=== PATIENT | female | born 1950 | race Caucasian/White ===

== ENCOUNTER 2017-06-01 08:22 | Observation (INO) ==
[2017-06-01] MEDS ORDERED: NITROGLYCERIN 2% OINT 1 INCH/GM PACK TOP STA (09:08)
[2017-06-01] MEDS ORDERED: ASPIRIN 325 MG TABLET PO STA (09:08)
--- NOTE | 2017-06-01 09:12 | EKG Report ---
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
--- NOTE | 2017-06-01 09:14 | Emergency Department Note ---
Arrival - Arrival Chief Complaint: Arrhythmia/Palpitations ED Nursing Triage Note: pt was getting out of shower this am and started ahving aching in bilateral jaws. then when pt was trying to get in the car she started having chest tightness. acu check is 148 Mode of Arrival: Stretcher Limitations: No Limitations Source: Patient Time Seen by Provider: 06/01/17 09:08 - History of Present Illness HPI Narrative: This 67-year-old white female presents with a history of waking up this morning and after taking a shower had severe left jaw pain with mild shortness of breath that lasted a matter of minutes. However, this was soon followed by getting into her car and having onset of chest tightness with shortness of breath and diaphoresis without nausea or vomiting. This lasted approximately 20 minutes until EMS arrived on the scene and began oxygen. This discomfort has since resolved. Of note, she states yesterday at [employer] she had a similar episode with the chest heaviness, diaphoresis, and low-grade nausea which by merely sitting there resolved itself over a period of 20-30 minutes. She is followed by Dr. Walker for atrial fibrillation and has not had a history of significant ischemic disease or congestive failure. Up until Thursday, she had been feeling quite well in fact, and had recently seen Dr. Walker and given a clean bill of health cardiac donovan. Currently she may have a twinge of nausea left but otherwise feels back to normal. Onset (ago): hour(s) (Patient presents 3 hours post onset of symptoms) Allergies/Adverse Reactions: Allergies Allergy/AdvReac Type Severity Reaction Status Date / Time No Known Allergies Allergy Unverified 06/01/17 08:35 Home Medications: Home Medications Medication Instructions Recorded Confirmed Type Apixaban [Eliquis] 5 mg PO BID 06/01/17 06/01/17 History Atenolol 25 mg PO BID 06/01/17 06/01/17 History Flecainide Acetate 100 mg PO BID 06/01/17 06/01/17 History Lisinopril 10 mg PO DAILY 06/01/17 06/01/17 History Magnesium Oxide 400 mg PO BID 06/01/17 06/01/17 History Metformin HCl 500 mg PO BID 06/01/17 06/01/17 History PARoxetine HCl [Paroxetine HCl] 20 mg PO DAILY 06/01/17 06/01/17 History Simvastatin 10 mg PO DAILY 06/01/17 06/01/17 History Review of System - Review of System 12 point system: reviewed and no additional remarkable complaints except as stated - Review of System Constitutional: Present: as per HPI Respiratory: Present: as per HPI Cardiovascular: Present: as per HPI Gastrointestinal: Present: as per HPI Medical,Surgical,& Family Hx - Medical History Cardio: History of: Cardiac Dysrhythmia (a fib), Hypertension Endocrine: History of: Diabetes Mellitus (NIDDM) - Social History Smoking Status: Never smoker Frequency of Alcohol Use: None Type of Drug Use: None Exam Physical Examination: GENERAL: Morbidly obese white female in no acute distress. HEENT: Normocephalic. No trauma. Moist mucous membranes. EOMI. PERRLA. ENT NML NECK: Supple. No adenopathy. CARDIAC: Regular. No murmurs. Heart rate 100 CHEST: Clear to auscultation. No respiratory distress. ABDOMEN: Soft. Nontender. Active bowel sounds. EXTREMITIES: No trauma. Normal ROM. No pedal edema. SKIN: No diaphoresis. No rash. NEURO: Alert. Neuro intact. No focal deficits. Vital Signs: Vital Signs Temperature 98.1 F 06/01/17 08:28 Pulse Rate 96 H 06/01/17 10:00 Respiratory Rate 19 06/01/17 10:00 Blood Pressure 111/86 06/01/17 10:00 O2 Sat by Pulse Oximetry 99 06/01/17 10:00 Course - Reevaluation(s) Reevaluation #1: Advised patient of need for admission further evaluation given her numerous episodes in the last 24 hours of the symptoms. - Consultations Consultation #1: Discussed with cardiology who will admit for further evaluation and treatment Results - Labs CBC & BMP: 06/01/17 09:18 06/01/17 09:18 Labs: I reviewed the laboratory noted the normal cardiac's - Impressions EKG: Sinus rhythm at 100 with shortened [place] interval and normal QRS duration. Left axis deviation with diffuse ST flattening and depression in inferolateral leads. No acute injury pattern noted. - Diagnostic Findings Procedure: Chest x-ray: image reviewed by me, report reviewed by me (Normal chest) Disposition Clinical Impression: Unstable angina, Atrial fibrillation Case discussed with: patient Disposition: Still a Patient Condition: Guarded Time of Disposition: 11:34
[2017-06-01] MEDS ORDERED: METOPROLOL TARTRATE 25 MG TABLET PO STA (09:18)
[2017-06-01 09:30] LABS: Basophils % 0.3 % (0.0-0.8); Eosinophils # 0.2 10*3/uL (0.0-0.87); Eosinophils % 1.6 % (0.00-10.9); Hematocrit 44.8 VOL% (35.7-47.0); Immature Granulocytes % 0.4 %; Immature Granulocytes Absolute 0.05 #; Lymphocytes # 3.2 10*3/uL (1.4-4.0); Lymphocytes % 27.7 % (21.3-54.2); Mean Corpuscular HGB Conc 33.5 GM/DL (32-36); Mean Corpuscular Hemoglobin 29 PG (27-34); Mean Corpuscular Volume 85.7 FL (87-102); Mean Platelet Volume 10.6 FL (9.6-12.0); Monocytes # 0.6 10*3/uL (0.11-0.8); Monocytes % 5.2 % (1.7-12.7); Neutrophils # 7.4 10*3/uL (1.4-7.4); Neutrophils % 64.8 % (38.7-73.9); Platelet Count 262 T/CUMM (130-400); Red Blood Count 5.23 MC/CUMM (3.8-5.5); Red Cell Distribution Width 15.6 % (9.3-17.3); White Blood Count 11.5 T/CUMM (4-12)
[2017-06-01] MEDS ORDERED: METOPROLOL TARTRATE 25 MG TABLET ONE (09:41)
[2017-06-01] MEDS ORDERED: NITROGLYCERIN 2% OINT 1 INCH/GM PACK TOP ONE (09:41)
[2017-06-01] MEDS ORDERED: ASPIRIN 325 MG TABLET ONE (09:42)
--- NOTE | 2017-06-01 09:55 | XRay Report ---
Exam: XR chest 2V Indication: Midline chest pain, cardiomegaly Comparison study: Prior chest radiograph 01/18/2009 Findings: Critics silhouette is mildly enlarged, similar to prior. Otherwise, the heart, mediastinum and bony structures are stable from prior. Minimal perihilar/basilar interstitial prominence appears similar prior may represent underlying scarring. There is no focal consolidation, pneumothorax or pleural effusion identified. Impression: No acute cardiopulmonary process. No significant change from prior. PROCEDURE INTERPRETED AT [facility] DEPARTMENT OF RADIOLOGY Final Report Signed by: Mikey Jc
[2017-06-01 09:59] LABS: Alanine Aminotransferase 24 U/L (13-56); Albumin 3.6 G/DL (3.4-5.0); Alkaline Phosphatase 79 U/L (45-117); Aspartate Amino Transferase 33 U/L (0-37); Blood Urea Nitrogen 19 MG/DL (7-18); Calcium 9.6 MG/DL (8.5-10.1); Glucose 123 MG/DL (74-106); Osmolality,Calculated 281.4 MOS/KG (273-304); Sodium 140 MMOL/L (136-145); Total Protein 6.9 G/DL (6.4-8.3); Troponin I Only < 0.015 NG/ML (0.00-0.045)
[2017-06-01 10:53] LABS: Apearance,Urine CLOUDY (Clear); Bilirubin,Urine Negative (Negative); Blood, Urine Negative (Negative); Glucose,Urine (UA) Negative (Negative); Ketones,Urine Negative (Negative); Mucus,Urine Occasional /LPF (Occasional); Nitrite,Urine Negative (Negative); Protein,Urine 30 MG/DL; RBC,Urine 8 /HPF (0-4); Squamous Epithelial Cell,Urine Occasional /HPF (0-10); Urine Color Yellow (Yellow); Urine Specific Gravity 1.012 (1.001-1.035); WBC,Urine 295 /HPF (0-6)
[2017-06-01 11:00] LABS: Barbiturates Screen,Urine Negative (Negative); Benzodiazepines Screen,Urine Negative (Negative); Cannabinoid Screen,Urine Negative (Negative); Opiate Screen,Urine Negative (Negative); Phencyclidine Screen,Urine Negative (Negative)
[2017-06-01] MEDS ORDERED: DOCUSATE SODIUM 100 MG CAPSULE PO PRN (11:34)
[2017-06-01] MEDS ORDERED: ACETAMINOPHEN 325 MG TABLET PO PRN (11:34)
[2017-06-01] MEDS ORDERED: ZALEPLON 5 MG CAPSULE PO PRN (11:34)
[2017-06-01] MEDS ORDERED: MAGNESIUM SULF RIDER 2 GM in PREMIX 1 EACH IV PRN (11:34)
[2017-06-01] MEDS ORDERED: MAGNESIUM SULF RIDER 4 GM in PREMIX 1 EACH IV PRN (11:34)
[2017-06-01] MEDS ORDERED: ONDANSETRON 4 MG/2 ML VIAL IV PRN (11:34)
[2017-06-01] MEDS ORDERED: POTASSIUM CHLORIDE 20 MEQ TABLET PO PRN (11:34)
[2017-06-01] MEDS ORDERED: ENOXAPARIN 120 MG/0.8 ML SYRINGE SUBCUT ONE ×2 (11:36→12:17)
[2017-06-01] MEDS ORDERED: GLUCAGON 1 MG VIAL IM PRN (11:59)
[2017-06-01] MEDS ORDERED: DEXTROSE 50% 25 GM/50 ML VIAL IV PRN (11:59)
--- NOTE | 2017-06-01 12:00 | Cardiology History & Physical ---
<Anastasia Douglas E - Last Filed: 06/01/17 11:41> Assessment and Plan - Time spent with patient Time spent with patient: Greater than 30 minutes (due to assessment, plan, and documentation) (1) Chest pain Status: Acute Assessment and plan: See plan of care listed below. Current Visit: Yes (2) Paroxysmal atrial fibrillation Status: Chronic Assessment and plan: See plan of care listed below. Current Visit: Yes (3) Hypertension Status: Chronic Assessment and plan: See plan of care listed below. Current Visit: Yes (4) Hyperlipidemia Status: Chronic Assessment and plan: See plan of care listed below. Current Visit: Yes (5) Non-insulin dependent type 2 diabetes mellitus Status: Chronic Assessment and plan: See plan of care listed below. Current Visit: Yes (6) Obesity Status: Chronic Assessment and plan: See plan of care listed below. 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 Walker PCP: Dr. Pérez Ms. Vaca is a 67 year old female with a history of paroxysmal atrial fibrillation, hypertension, type 2 diabetes, hyperlipidemia, obesity. Risk factors are significant for: Diabetes, hypertension, obesity, age, sedentary lifestyle. She has required cardioversion twice in the past, on August 12, 2004 and on April 13, 2009. She reports she has undergone stress testing in the past but this is been several years ago. I cannot find this report in her clinic or hospital record. She presented to the emergency room via EMS this morning for further evaluation of chest heaviness. Ms. Vaca tells me that yesterday when she got out of the shower she began having bilateral jaw aching, nausea, and diaphoresis. She tells me this lasted for approximately an hour and improved after she got to Thursday school and was able to rest in a cold room. She reports she had no other issues throughout the day. This morning, she was getting ready to go to work when she developed the same symptoms with the addition of chest heaviness and shortness of breath. When the symptoms did not pass, she called EMS. Her symptoms today lasted approximately 20 minutes and went away and went to the hospital. She can identify no aggravating or alleviating factors other than being in a cold room helping her feel better. Her symptoms were mild to moderate in severity. Her symptoms are nonreproducible to movement, palpation, or deep breathing. 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 Upon arrival, she was found to be in an ectopic atrial tachycardic rhythm and noted ST depression. Her initial set of cardiac biomarkers was negative. Creatinine is 0.8, potassium 5.0, BNP 97, H&H stable at 15.0/44.8. ASSESSMENT/PLAN: 1. CHEST PAIN - Patient presents with some typical and some atypical features of angina. Will admit to the telemetry unit to rule out WI. Will continue to cycle cardiac biomarkers and EKGs. 2. PAROXYSMAL ATRIAL FIBRILLATION - Continue home medications and monitor. Will check TSH/FT4. 3. HYPERTENSION - Currently well controlled with occasional borderline hypotensive reading. Will continue to monitor and adjust medications accordingly. 4. HYPERLIPIDEMIA - Continue lipid lowering agent. Will recheck lipid panel in AM. 5. TYPE 2 DIABETES MELLITUS - Accuchecks ACHS with sliding scale insulin. 6. OBESITY - Chronic. Encouraged lifestyle modifications and weight loss. Dr. Gunn to follow with further plan and addendum. Home Medications Medication Instructions Recorded Confirmed Type Apixaban [Eliquis] 5 mg PO BID 06/01/17 06/01/17 History Atenolol 25 mg PO BID 06/01/17 06/01/17 History Flecainide Acetate 100 mg PO BID 06/01/17 06/01/17 History Lisinopril 10 mg PO DAILY 06/01/17 06/01/17 History Magnesium Oxide 400 mg PO BID 06/01/17 06/01/17 History Metformin HCl 500 mg PO BID 06/01/17 06/01/17 History PARoxetine HCl [Paroxetine HCl] 20 mg PO DAILY 06/01/17 06/01/17 History Simvastatin 10 mg PO DAILY 06/01/17 06/01/17 History Allergies Allergy/AdvReac Type Severity Reaction Status Date / Time No Known Allergies Allergy Unverified 06/01/17 08:35 Review of systems: - Constitutional: Present: As per HPI. Absent: anorexia, chills, daytime sleepiness, excessive sweating, fever(s), frequent falls, headache(s), increased appetite, lethargy, malaise, night sweats, stops breathing during sleep, weakness, weight gain, weight loss, fatigue. - EENT Eyes: Present: As per HPI. Absent: blurry vision, diplopia, loss of vision Ears: Present: As per HPI. Absent: decreased hearing, ear discharge, ear pain Nose, mouth and throat: Present: As per HPI. Absent: dysphagia, epistaxis, headache(s), hoarseness, lip swelling, nasal congestion, neck mass, neck pain, sinus pressure, sore throat, throat swelling, tongue swelling, vertigo - Cardiovascular: Present: chest pain at rest, dyspnea, diaphoresis, radiating jaw, neck or arm pain, as per HPI. Absent: chest pain with activity, dyspnea on exertion, edema, claudication, lightheadedness, orthopnea, palpitations, PND - Respiratory: Present: dyspnea, as per HPI. Absent: dyspnea on exertion, cough , hemoptysis, wheezing, snoring, pain on inspiration - Gastrointestinal: Present: nausea, As per HPI. Absent: abdominal pain, bloating, change in bowel habits, constipation, diarrhea, heartburn, hematemesis , hematochezia, loose stools, melena, vomiting - Genitourinary: Present: As per HPI. Absent: difficulty urinating, dysuria, flank pain, hematuria, nocturia, urinary frequency, urinary incontinence - Musculoskeletal: Present: As per HPI. Absent: arthralgias, back pain, joint swelling, limited range of motion, muscle cramps, muscle weakness, myalgias - Neurological: Present: As per HPI. Absent: abnormal gait, abnormal speech, behavioral changes, confusion, convulsions, disequilibrium, dizziness, focal weakness, frequent falls, headache(s), memory loss, numbness, paresthesias, radicular pain, syncope, tremor(s) - Psychiatric: Present: As per HPI. Absent: anxiety, confusion, depression, panic attacks - Endocrine: Present: As per HPI. Absent: cold intolerance, fatigue, heat intolerance, polydipsia, polyphagia - Hematologic/Lymphatic: Present: As per HPI. Absent: easy bleeding, easy bruising, lymphadenopathy Medical,Surgical,& Family Hx - Medical History Cardio: History of: Cardiac Dysrhythmia (a fib), Hypertension Endocrine: History of: Diabetes Mellitus (NIDDM), Dyslipidemia - Social History Smoking Status: Never smoker Frequency of Alcohol Use: None Type of Drug Use: None Marital Status: Single Lives With:: Alone Functional capacity: independent ambulation Cardiology Physical Exam - Constitutional Vitals: Vital Signs Temp Pulse Resp BP Pulse Ox 98.1 F 96 H 19 111/86 99 06/01/17 08:28 06/01/17 10:00 06/01/17 10:00 06/01/17 10:00 06/01/17 10:00 Intake and Output 05/31/17 06/01/17 06/01/17 22:59 06:59 14:59 Intake Total 300 / 300 Balance 300 / 300 Intake: Intake - Additional IV 300 / 300 Volume (mLs) Right Forearm 300 / 300 Other: Weight 286 lb Patient Weight 06/02/17 06:59 Weight 286 lb Exam: General appearance: Pleasant and cooperative. Obese, no acute distress. - Head Head exam: Present: normal inspection, normocephalic, atraumatic. Absent: hematoma, laceration - Eye Eye exam: Present: EOMI. Absent: conjunctival injection, nystagmus, periorbital swelling, scleral icterus, laceration to eyelids Pupils: Present: PERRL. Absent: constricted, dilated, fixed, irregular, unequal - ENT ENT exam: Present: normal exam, normal external ear exam - Neck Neck exam: Present: normal inspection. Absent: lymphadenopathy, meningismus, tenderness, thyromegaly - Respiratory Respiratory exam: Present: clear to auscultation bilaterally. Absent: accessory muscle use, chest wall tenderness - Cardiovascular Cardiovascular exam: Present: regular rate and rhythm. Absent: carotid bruit, gallop, JVD, rubs, murmur - GI/Abdominal GI/Abdominal exam: Present: normal bowel sounds, soft. Absent: distended, firm , guarding, hernia, mass, tenderness, rebound. - Extremities Exam Extremities exam: Present: normal inspection, normal capillary refill. Upper extremity pulses 2+. Lower extremity pulses 2+. Absent: calf tenderness, edema -Musculoskeletal Exam Musculoskeletal: Present: No Fluid Collection, No Pain, Normal Range of Motion - Back Exam Back exam: Present: normal inspection. Absent: muscle spasm, vertebral tenderness - Neurological Exam Neurological exam: Present: alert, oriented X3, grossly intact without resting or essential tremor - Psychiatric Psychiatric exam: Present: normal affect, normal mood - Skin Skin exam: Present: normal color, warm, dry, intact. Absent: cyanosis, diaphoretic, rash, urticaria Result/EKG - Labs CBC & BMP: 06/01/17 09:18 06/01/17 09:18 Lab Results: I have reviewed the past 24 hour labs Labs: Laboratory Results - last 24 hr 06/01/17 06/01/17 06/01/17 09:18 09:18 09:18 WBC 11.5 RBC 5.23 Hgb 15.0 Hct 44.8 MCV 85.7 L MCH 29 MCHC 33.5 RDW 15.6 Plt Count 262 MPV 10.6 Neut % (Auto) 64.8 Lymph % (Auto) 27.7 [place] % (Auto) 5.2 Eos % (Auto) 1.6 Baso % (Auto) 0.3 Neut # (Auto) 7.4 Lymph # (Auto) 3.2 [place] # (Auto) 0.6 Eos # (Auto) 0.2 Baso # (Auto) 0.0 Immature Gran % 0.4 Nucleated RBC % 0.0 Immature Gran # 0.05 Nucleated RBCs # 0.00 Sodium 140 Potassium 5.0 Chloride 105 Carbon Dioxide 28 Anion Gap 12.0 BUN 19 H Creatinine 0.80 GFR Calculation 101 BUN/Creatinine Ratio 23.00 H Glucose 123 H Calculated Osmolality 281.4 Calcium 9.6 Total Bilirubin 0.60 AST 33 ALT 24 Alkaline Phosphatase 79 Total Creatine Kinase 112 CK-MB (CK-2) 1.3 Troponin I < 0.015 B-Natriuretic Peptide 97 Total Protein 6.9 Albumin 3.6 Globulin 3.3 Albumin/Globulin Ratio 1.0 L Urine Color Urine Appearance Urine pH Ur Specific [place] Urine Protein Urine Glucose (UA) Urine Ketones Urine Blood Urine Nitrate Urine Bilirubin Urine Urobilinogen Urine Leukocytes Urine RBC Urine WBC Urine WBC Clumps Ur Squamous Epith Cells Urine Mucus Ur Culture Indicated? Urine Opiates Screen Ur Barbiturates Screen Ur Phencyclidine Scrn U Amphetamine/Methamph U Benzodiazepines Scrn U Cocaine Metab Screen U Cannabinoids Screen 06/01/17 06/01/17 10:48 10:48 WBC RBC Hgb Hct MCV MCH MCHC RDW Plt Count MPV Neut % (Auto) Lymph % (Auto) [place] % (Auto) Eos % (Auto) Baso % (Auto) Neut # (Auto) Lymph # (Auto) [place] # (Auto) Eos # (Auto) Baso # (Auto) Immature Gran % Nucleated RBC % Immature Gran # Nucleated RBCs # Sodium Potassium Chloride Carbon Dioxide Anion Gap BUN Creatinine GFR Calculation BUN/Creatinine Ratio Glucose Calculated Osmolality Calcium Total Bilirubin AST ALT Alkaline Phosphatase Total Creatine Kinase CK-MB (CK-2) Troponin I B-Natriuretic Peptide Total Protein Albumin Globulin Albumin/Globulin Ratio Urine Color Yellow Urine Appearance Cloudy Urine pH 8.0 Ur Specific [place] 1.012 Urine Protein 30 Urine Glucose (UA) Negative Urine Ketones Negative Urine Blood Negative Urine Nitrate Negative Urine Bilirubin Negative Urine Urobilinogen 2.0 H Urine Leukocytes Large H Urine RBC 8 Urine WBC 295 Urine WBC Clumps Few Ur Squamous Epith Cells Occasional Urine Mucus Occasional Ur Culture Indicated? Results to follow Urine Opiates Screen Negative Ur Barbiturates Screen Negative Ur Phencyclidine Scrn Negative U Amphetamine/Methamph Negative U Benzodiazepines Scrn Negative U Cocaine Metab Screen Negative U Cannabinoids Screen Negative - EKG EKG results: interpreted by me, sinus rhythm (with atrial tachycardia) <Prakash Gunn - Last Filed: 06/01/17 13:43> Assessment and Plan (1) Chest pain Status: Acute Assessment and plan: Her symptoms are somewhat atypical for angina. Her EKG shows some ST-T change which are concerning but could easily be explained by some of the medications that she is taking. I think the best approach is going to be to rule out any acute event and then have her screened. We are going to find an EKG to review and compare to the current EKG. Current Visit: Yes History of Present Illness History of present illness: Ms. Vaca is a 67 year old female Cardiology Physical Exam - Constitutional Vitals: Vital Signs Temp Pulse Resp BP Pulse Ox 98.0 F 107 H 18 127/81 97 06/01/17 12:47 06/01/17 12:47 06/01/17 12:47 06/01/17 12:47 06/01/17 12:47 Intake and Output 05/31/17 06/01/17 06/01/17 23:59 07:59 15:59 Intake Total 300 / 300 Balance 300 / 300 Intake: Intake - Additional IV 300 / 300 Volume (mLs) Right Forearm 300 / 300 Other: Weight 129.727 kg Patient Weight 06/01/17 23:59 Weight 129.727 kg Result/EKG - Labs CBC & BMP: 06/01/17 09:18 06/01/17 09:18 Labs: Laboratory Results - last 24 hr 06/01/17 06/01/17 06/01/17 09:18 09:18 09:18 WBC 11.5 RBC 5.23 Hgb 15.0 Hct 44.8 MCV 85.7 L MCH 29 MCHC 33.5 RDW 15.6 Plt Count 262 MPV 10.6 Neut % (Auto) 64.8 Lymph % (Auto) 27.7 [place] % (Auto) 5.2 Eos % (Auto) 1.6 Baso % (Auto) 0.3 Neut # (Auto) 7.4 Lymph # (Auto) 3.2 [place] # (Auto) 0.6 Eos # (Auto) 0.2 Baso # (Auto) 0.0 Immature Gran % 0.4 Nucleated RBC % 0.0 Immature Gran # 0.05 Nucleated RBCs # 0.00 Sodium 140 Potassium 5.0 Chloride 105 Carbon Dioxide 28 Anion Gap 12.0 BUN 19 H Creatinine 0.80 GFR Calculation 101 BUN/Creatinine Ratio 23.00 H Glucose 123 H Calculated Osmolality 281.4 Calcium 9.6 Total Bilirubin 0.60 AST 33 ALT 24 Alkaline Phosphatase 79 Total Creatine Kinase 112 CK-MB (CK-2) 1.3 Troponin I < 0.015 B-Natriuretic Peptide 97 Total Protein 6.9 Albumin 3.6 Globulin 3.3 Albumin/Globulin Ratio 1.0 L Urine Color Urine Appearance Urine pH Ur Specific [place] Urine Protein Urine Glucose (UA) Urine Ketones Urine Blood Urine Nitrate Urine Bilirubin Urine Urobilinogen Urine Leukocytes Urine RBC Urine WBC Urine WBC Clumps Ur Squamous Epith Cells Urine Mucus Ur Culture Indicated? Urine Opiates Screen Ur Barbiturates Screen Ur Phencyclidine Scrn U Amphetamine/Methamph U Benzodiazepines Scrn U Cocaine Metab Screen U Cannabinoids Screen 06/01/17 06/01/17 10:48 10:48 WBC RBC Hgb Hct MCV MCH MCHC RDW Plt Count MPV Neut % (Auto) Lymph % (Auto) [place] % (Auto) Eos % (Auto) Baso % (Auto) Neut # (Auto) Lymph # (Auto) [place] # (Auto) Eos # (Auto) Baso # (Auto) Immature Gran % Nucleated RBC % Immature Gran # Nucleated RBCs # Sodium Potassium Chloride Carbon Dioxide Anion Gap BUN Creatinine GFR Calculation BUN/Creatinine Ratio Glucose Calculated Osmolality Calcium Total Bilirubin AST ALT Alkaline Phosphatase Total Creatine Kinase CK-MB (CK-2) Troponin I B-Natriuretic Peptide Total Protein Albumin Globulin Albumin/Globulin Ratio Urine Color Yellow Urine Appearance Cloudy Urine pH 8.0 Ur Specific [place] 1.012 Urine Protein 30 Urine Glucose (UA) Negative Urine Ketones Negative Urine Blood Negative Urine Nitrate Negative Urine Bilirubin Negative Urine Urobilinogen 2.0 H Urine Leukocytes Large H Urine RBC 8 Urine WBC 295 Urine WBC Clumps Few Ur Squamous Epith Cells Occasional Urine Mucus Occasional Ur Culture Indicated? Results to follow Urine Opiates Screen Negative Ur Barbiturates Screen Negative Ur Phencyclidine Scrn Negative U Amphetamine/Methamph Negative U Benzodiazepines Scrn Negative U Cocaine Metab Screen Negative U Cannabinoids Screen Negative
[2017-06-01] MEDS: PANTOPRAZOLE 40 MG TABLET PO SCH (12:16)
[2017-06-01] MEDS ORDERED: PANTOPRAZOLE 40 MG TABLET PO ONE (12:17)
[2017-06-01 13:41] LABS: Troponin I Only < 0.015 NG/ML (0.00-0.045)
[2017-06-01] MEDS: INSULIN LISPRO 100 UNIT/ML SUBCUT SCH ×2 (16:51→22:28)
[2017-06-01 19:37] LABS: Troponin I Only < 0.015 NG/ML (0.00-0.045)
[2017-06-02 01:06] LABS: Troponin I Only < 0.015 NG/ML (0.00-0.045)
[2017-06-02] MEDS: INSULIN LISPRO 100 UNIT/ML SUBCUT SCH ×2 (08:59→12:38)
[2017-06-02] MEDS: PANTOPRAZOLE 40 MG TABLET PO SCH (09:42)
[2017-06-02] MEDS ORDERED: FLECAINIDE 100 MG TABLET PO SCH (10:00)
[2017-06-02] MEDS ORDERED: PARoxetine 20 MG TABLET PO SCH (10:00)
[2017-06-02] MEDS ORDERED: APIXABAN 5 MG TABLET PO SCH (10:00)
[2017-06-02] MEDS ORDERED: SIMVASTATIN 10 MG TABLET PO SCH (10:00)
[2017-06-02] MEDS ORDERED: MAGNESIUM OXIDE 400 MG TABLET PO SCH (10:00)
[2017-06-02] MEDS ORDERED: LISINOPRIL 10 MG TABLET PO SCH (10:00)
[2017-06-02] MEDS ORDERED: ATENOLOL 25 MG TABLET PO SCH (10:00)
[2017-06-02] MEDS ORDERED: DEXTROSE 50% 25 GM/50 ML VIAL IV PRN (14:35)
[2017-06-02] MEDS ORDERED: GLUCAGON 1 MG VIAL IM PRN (14:35)
--- NOTE | 2017-06-02 15:02 | Discharge Summary ---
<Michaelle Mann - Last Filed: 06/02/17 14:59> Hospital Course - Hospital Course Hospital Course: Founder And Ceo: Dr. Walker PCP: Dr. Pérez Ms. Alejo is a 67 year old female with a history of paroxysmal atrial fibrillation, hypertension, type 2 diabetes, hyperlipidemia and obesity. Risk factors are significant for: Diabetes, hypertension, obesity, age, sedentary lifestyle. She has required cardioversion twice in the past, on August 12, 2004 and on April 13, 2009. She reports she has undergone stress testing in the past but this is been several years ago. However, I cannot find this report in her clinic or hospital record. Patient presented to [facility] emergency room with atypical chest pain. She was admitted under cardiology's service and ruled out for myocardial infarction. Cardiac biomarkers negative. After discussing with Dr. Gunn, patient will be further screened with outpatient stress testing at cardiovascular [place] [facility] this week. She will then follow with Dr. Walker 1 week following stress test in order to review these results. She also has symptoms concerning for sleep apnea. She has been given a follow-up appointment with Dr. Queen. She also had complaints of abdominal fullness, excessive flatulence and has expressed concern for the need for screening colonoscopy. For this reason, she will follow up with GI outpatient as well for GI workup. This admission she has been and atrial fibrillation with a controlled ventricular response. She has a history of this and is chronically anticoagulated with Eliquis. Currently asymptomatic. Patient is anxious for discharge home. Having felt that she has met maximal medical therapy, she will be discharged home in stable condition. She will be discharged home with her preadmission medications. Patient verbalizes understanding of discharge instructions discharge medications. I have discussed in detail the particulars of this case and I have examined the patient and reviewed the patient's chart both current and old. I was directly involved in the patient's evaluation and management and I completely agree with Michaelle Mann F[employer] regarding this patient's evaluation and treatment plan. Diagnosis - Discharge Diagnosis (1) Atypical chest pain Status: Resolved (2) Paroxysmal atrial fibrillation Status: Chronic (3) Chronic anticoagulation Status: Chronic (4) Hypertension Status: Chronic (5) Hyperlipidemia Status: Chronic (6) Non-insulin dependent type 2 diabetes mellitus Status: Chronic (7) Obesity Status: Chronic Specialty Discharge - Follow Up or Referrals Follow up with: Julio Walker MD [Physician] - (Patient will need a schedule for outpatient stress testing at the cardiovascular [facility] within 1 week. She will then need to follow-up with Dr. Walker 1 week following stress test to review results.) Deng Olson MD [Physician] - (Patient will need an outpatient appointment with Dr. Olson for GI evaluation.) Alyson Queen MD [Physician] - (Patient will need appointment for outpatient evaluation for sleep apnea.) Discharge Plan - Discharge Data Disposition: Disch To Home/Self Care Condition at Discharge: Stable Discharge Diet: heart healthy Activity: resume usual activities as tolerated Hygiene: no restrictions Weight Bearing at Discharge: weight bear as tolerated Driving: no restrictions Contact your physician if you experience:: fever over 101, Difficulty voiding, Redness or swelling, Nausea/Vomiting, Shortness of breath, Bleeding, pain uncontrolled by pain medications - Discharge Medications New Pantoprazole Tab [Protonix Tab] 40 mg PO DAILY #30 tablet Continue Simvastatin 10 mg PO DAILY PARoxetine HCl [Paroxetine HCl] 20 mg PO DAILY Apixaban [Eliquis] 5 mg PO BID Magnesium Oxide 400 mg PO BID Lisinopril 10 mg PO DAILY Atenolol 25 mg PO BID Metformin HCl 500 mg PO BID Flecainide Acetate 100 mg PO BID - Follow Up or Referral Follow Up: Deng Olson MD [Physician] - (Patient will need an outpatient appointment with Dr. Olson for GI evaluation.) Julio Walker MD [Physician] - (Patient will need a schedule for outpatient stress testing at the cardiovascular [facility] within 1 week. She will then need to follow-up with Dr. Walker 1 week following stress test to review results.) Alyson Queen MD [Physician] - (Patient will need appointment for outpatient evaluation for sleep apnea.) - Forms/Instructions Instructions: Chest Pain (DC) Exam - Constitutional Vitals: Period Temp Pulse Resp BP Sys/Singh Pulse Ox Last 24 Hr 97.0 F-98.1 F 61-95 18-20 90-197/52-83 95-99 Exam: General appearance: Pleasant and cooperative. Obese, no acute distress. - Head Head exam: Present: normal inspection, normocephalic, atraumatic. Absent: hematoma, laceration - Eye Eye exam: Present: EOMI. Absent: conjunctival injection, nystagmus, periorbital swelling, scleral icterus, laceration to eyelids Pupils: Present: PERRL. Absent: constricted, dilated, fixed, irregular, unequal - ENT ENT exam: Present: normal exam, normal external ear exam - Neck Neck exam: Present: normal inspection. Absent: lymphadenopathy, meningismus, tenderness, thyromegaly - Respiratory Respiratory exam: Present: clear to auscultation bilaterally. Absent: accessory muscle use, chest wall tenderness - Cardiovascular Cardiovascular exam: Present: irregular rhythm, controlled rate. Absent: carotid bruit, gallop, JVD, rubs, murmur - GI/Abdominal GI/Abdominal exam: Present: normal bowel sounds, soft. Absent: distended, firm , guarding, hernia, mass, tenderness, rebound. - Extremities Exam Extremities exam: Present: normal inspection, normal capillary refill. Upper extremity pulses 2+. Lower extremity pulses 2+. Absent: calf tenderness, edema -Musculoskeletal Exam Musculoskeletal: Present: No Fluid Collection, No Pain, Normal Range of Motion - Back Exam Back exam: Present: normal inspection. Absent: muscle spasm, vertebral tenderness - Neurological Exam Neurological exam: Present: alert, oriented X3, grossly intact without resting or essential tremor - Psychiatric Psychiatric exam: Present: normal affect, normal mood - Skin Skin exam: Present: normal color, warm, dry, intact. Absent: cyanosis, diaphoretic, rash, urticaria Discharge Results Procedures and tests throughout hospitalization: Pending Orders 06/01/17 Urine Culture Routine 06/03/17 04:00 Basic Metabolic Panel IN AM Comp Blood Count Auto Diff IN AM Magnesium IN AM 06/04/17 04:00 Basic Metabolic Panel IN AM Comp Blood Count Auto Diff IN AM Magnesium IN AM Labs on day of discharge: Labs from last 24 hours 06/02/17 06/02/17 06/02/17 12:05 08:15 00:27 POC Glucose 98 118 H Total Creatine Kinase 72 CK-MB (CK-2) < 1.0 Troponin I < 0.015 06/01/17 06/01/17 22:29 18:30 POC Glucose 109 H Total Creatine Kinase 65 D CK-MB (CK-2) < 1.0 Troponin I < 0.015 Preliminary micro results at discharge 06/01/17 Unknown Urine Culture - Preliminary Urine,Clean Catch Gram Negative Rods - Imaging and Cardiology Procedure: Chest x-ray: report reviewed by DS: Provider Date of admission: 06/01/17 11:33 Primary care physician: . No PCP Attending physician on admission: Prakash Gunn MD Discharging clinician: Michaelle Mann NP Expected date of discharge: 06/02/17 <Prakash Gunn - Last Filed: 06/02/17 18:32> Diagnosis - Discharge Diagnosis (1) Chest pain Status: Acute
[2017-06-02 18:18] VITALS: BP 90/52
== END 2017-06-02 17:52 | disposition home or self-care (01) ==
LOC: EDBD → EDUNIT# → N.ED 08:22 → N.EDINP 08:22 → N.TELEN 12:45
PROVIDERS: ADMIT Internal Medicine Interventional Cardiology; ATTEND Internal Medicine Interventional Cardiology